=== PATIENT | male | born 1980 | race Caucasian/White ===

== ENCOUNTER 2016-12-23 09:31 | Outpatient (CLI) | payer BC ==
[~2016-12-23] VITALS: Ht 185.4 cm; Wt 117.9 kg
[2016-12-23] MEDS ORDERED: LISI10TA2 PO (16:18)
[2016-12-23] MEDS ORDERED: CYCL10TA9 PO (16:18)
[2016-12-23] MEDS ORDERED: TEMA15CA PO (16:18)
[2017-03-07] MEDS ORDERED: HYDR-3729 PO ×2 (06:54→08:25)
[2017-03-07] MEDS ORDERED: CYCL10TA9 PO (08:25)
== END 2016-12-23 16:22 ==
LOC: PREOP 09:31
PROVIDERS: ATTEND Pain Medicine Pain Medicine
DX: Z01.818 Encounter for other preprocedural examination (principal); M51.86 Other intervertebral disc disorders, lumbar region; G89.4 Chronic pain syndrome

== ENCOUNTER 2016-12-27 07:39 | Day surgery (SDC) | payer BC ==
[~2016-12-27] VITALS: Ht 185.4 cm; Wt 117.9 kg
[~2016-12-27 07:39] MED LIST: CYCL10TA9 PO; LISI10TA2 PO; TEMA15CA PO
[2016-12-27] MEDS ORDERED: ceFAZolin 2 GM/50 ML NS 50 ML IV ONE (08:20)
[2016-12-27] MEDS ORDERED: LACTATED RINGERS 1,000 ML IV PRN ×2 (08:25→08:46)
[2016-12-27] MEDS ORDERED: ceFAZolin 2 GM/NS 50 ML IV ONE (08:45)
[2016-12-27] MEDS ORDERED: proPOfol 200 MG/20 ML (DIPRIVAN) VIAL IV ONE (08:48)
[2016-12-27] MEDS ORDERED: fentaNYL INJECTION 100 MCG/2 ML AMP ONE (08:49)
[2016-12-27] MEDS ORDERED: MIDAZOLAM 2 MG/2 ML (VERSED) VIAL ONE (08:49)
[2016-12-27 08:50] VITALS: BP 147/91
--- NOTE | 2016-12-27 08:50 | Progress Note-Pre Operative ---
Pre-Operative Progress Note H&P Reviewed The H&P was reviewed, patient examined and no changes noted. Date H&P Reviewed: Dec 27, 2016 Time H&P Reviewed: 08:50 Pre-Operative Diagnosis: chronic pain syndrome, lumbago, degenerative disc disease lumbar MARIELENA JERONIMO MD Dec 27, 2016 8:50 am
[2016-12-27] MEDS ORDERED: LIDOCAINE 1% INJ 20 ML (XYLOCAINE) VIAL ONE (08:52)
--- NOTE | 2016-12-27 09:52 | Discharge Inst-Simple/Standard ---
Discharge Inst-Standard Patient Instructions/Follow Up Plan of Care/Instructions/FU: Call clinic for any fevers, chills or bleeding/drainage from surgical site. Do not remove the dressings. No showers or bathing for 7 days. Turn off the spinal cord stimulator when driving. Follow up in clinic on 01/01/17 at 10:30 am Call the spinal cord stimulator promotions representative or pain clinic for any questions or concerns. Activity as Tolerated: Yes Discharge Diet: No Restrictions MARIELENA JERONIMO MD Dec 27, 2016 09:52
--- NOTE | 2016-12-27 09:54 | Operative Report ---
Operative Report Date of Procedure/Surgery Dec 27, 2016 Post-Operative Diagnosis chronic pain syndrome, lumbago, degenerative disc disease lumbar Procedure Performed Name of Procedure: AP Film of Thoracolumbar Spine w/ fluoroscopy guidance and interpretation Placement of specialized epidural needle to the L2-3 inter space bilaterally Placement of linear lead with dual 8 electrodes to the T6-T7 disc interspace area Intra-operative complex programming of lead taking 30 minutes. Anchoring the spinal cord stimulator lead to the skin Complex programming in recovery taking 30 minutes. Description of Procedure Anesthesia Type: MAC Estimated blood loss (mL): <5 ml Specimen(s) collected none Packing: none Indications The patient is an established patient with the above known diagnosis. The patient understands the reason for the procedure along with the risks, benefits and alternatives available. The patient has had the opportunity to ask questions prior to the procedure, and the patient has given written, informed, consent to proceed with the procedure. Medical Necessity: This patient has chronic pain that has failed to respond to conservative measures as outlined in the original history and physical exam. Patient's symptoms include pain in the ow back and legs. The goals of treatment are to 1) achieve optimal pain control, recognizing that a pain-free state may not be achievable; 2) minimize adverse outcomes; 3) enhance functional abilities, and physical and psychological well-being; and 4) enhance the quality of life for patients with chronic pain. Procedure After obtaining written informed consent patient. Patient was taken to the operating room. Pre-procedure blood pressure and pulse were stable and recorded in patients clinic chart. A formal time out was performed. Ancef 2 gm IV was given. The patient was placed in the prone position on operating room table. The patient was attached to a vital sign monitor, continuously monitoring saturation through pulse oximeter, pulse rate, and routine checks on the blood pressure as recorded in the anesthesia record. Moderate level sedation was then achieved by anesthesia as detailed in anesthesia record. A large portion of the dorsal cavity was scrubbed with a micro-antibacterial surgical solution. The patient was draped in typical sterile fashion. After confirmation of vertebral count through thorocolumbar films, the C-arm was used to help define the angle and access point for the epidural needle. Prior to needle placement, and after location of the access point, lidocaine 1% was infiltrated into the skin and deeper tissue area for localization prior to specialized epidural needle placement. After the lidocaine had taken effect, a Touhy needle size 14- guage was introduced and advanced at the level of L2-L3 on the right and left side. Once the loss of resistance was positive using a glass syringe, an 8 electrode linear lead was channeled through the epidural needle and guided carefully to the T6-T7 inter space. The same steps were followed to place an 8 electrode lead midline to the left of the first lead. This placement gave appropriate stimulation. Various program settings were worked through within the operating room, to ensure appropriate coverage with the stimulation. Minor adjustments were made as needed to develop excellent coverage. There was no evidence of paresthesia, heme or CSF. Once the coverage was optimal, the guide needle was removed from the insertion site. The leads then were anchored using the tapered anchor 2-0 silk. Sterile dressing applied using tegaderm, bacitracin ointment and gauze. The patient was then taken from the operating room via stretcher and placed in a recovery room. Once in the recovery room, the fine tune adjustments were made to the stimulation pattern. This additional programming was needed to give the patient optimal coverage during the trial. Post operatively the patient was monitored until stable. Following the procedure the patient's vital signs were stable. fluoro time are recorded in the patient chart. Allergies and Home Medications Allergies Coded Allergies: No Known Drug Allergies (Unverified , 12/23/16) Home Medications Cyclobenzaprine HCl 10 Mg Tablet 10 MG PO HS (Reported) Lisinopril 10 Mg Tablet 10 MG PO DAILY (Reported) Temazepam 15 Mg Capsule 15 MG PO HS (Reported) MARIELENA JERONIMO MD Dec 27, 2016 09:54
[2016-12-27] MEDS ORDERED: ONDANSETRON 4 MG/2 ML (SDV) Z0FRAN IVP PRN (10:00)
[2016-12-27] MEDS ORDERED: morphine INJ 10 MG/ML 1ML (SYR OR VIAL) IVP PRN (10:00)
[2016-12-27 10:15] VITALS: BP 114/70
[2016-12-27 10:45] VITALS: BP 133/87
--- NOTE | 2016-12-27 10:49 | Diagnostic Imaging Report ---
Fluoroscopy guidance provided to the OR. INDICATION: Nerve stimulator placement. FINDINGS: Fluoroscopy time provided for 3 minutes and 47 seconds. IMPRESSION: Imaging over the lower chest demonstrates spine stimulator leads placed projecting over the lower thoracic spine. Dictated by: Dictated on workstation # [id number]
[2016-12-27 11:15] VITALS: BP 126/77
[2016-12-27 11:45] VITALS: BP 126/77
[2017-03-07] MEDS ORDERED: HYDR-3729 PO ×2 (06:54→08:25)
[2017-03-07] MEDS ORDERED: CYCL10TA9 PO (08:25)
== END 2016-12-27 11:45 | disposition home or self-care (01) ==
LOC: SDC 07:39
PROVIDERS: ATTEND Pain Medicine Pain Medicine
DX: G89.4 Chronic pain syndrome (principal); M51.86 Other intervertebral disc disorders, lumbar region
CPT/HCPCS: 87081

== ENCOUNTER 2017-02-10 14:08 | Outpatient (CLI) | payer BC ==
[~2017-02-10] VITALS: Ht 185.4 cm; Wt 117.9 kg
[2017-03-07] MEDS ORDERED: HYDR-3729 PO ×2 (06:54→08:25)
[2017-03-07] MEDS ORDERED: CYCL10TA9 PO (08:25)
== END 2017-02-10 14:34 ==
LOC: PREOP 14:08
PROVIDERS: ATTEND Orthopaedic Surgery Orthopaedic Surgery of the Spine
DX: Z01.818 Encounter for other preprocedural examination (principal); M54.5 Low back pain

== ENCOUNTER 2017-03-07 06:13 | Day surgery (SDC) | payer BC ==
[~2017-03-07] VITALS: Ht 185.4 cm; Wt 117.9 kg
[~2017-03-07 06:13] MED LIST changes: -HYDR-3729 PO; -LACTATED RINGERS 1,000 ML IV ONE
[2017-03-07 06:30] VITALS: BP 131/86
[2017-03-07] MEDS: LACTATED RINGERS 1,000 ML IV PRN ×2 (06:30→08:09)
[2017-03-07] MEDS ORDERED: ceFAZolin 1,000 MG (ANCEF) VIAL ONE (06:36)
[2017-03-07] MEDS ORDERED: NS (IVPB) 50 ML ONE (06:37)
[2017-03-07] MEDS ORDERED: MIDAZOLAM 2 MG/2 ML (VERSED) VIAL ONE (06:43)
[2017-03-07] MEDS ORDERED: ROCURONIUM 50 MG/5 ML (ZEMURON) VIAL IV ONE (06:43)
[2017-03-07] MEDS ORDERED: ONDANSETRON 4 MG/2 ML (SDV) Z0FRAN ONE (06:43)
[2017-03-07] MEDS ORDERED: LIDOCAINE PF 2% 10 ML (XYLOCAINE) AMP ONE (06:43)
[2017-03-07] MEDS ORDERED: proPOfol 200 MG/20 ML (DIPRIVAN) VIAL IV ONE (06:43)
[2017-03-07] MEDS ORDERED: fentaNYL INJECTION 100 MCG/2 ML AMP ONE ×3 (06:43→09:11)
[2017-03-07] MEDS ORDERED: DEXAMETHASONE PF 10 MG/ML (DECADRON) VIAL ONE (06:43)
[2017-03-07] MEDS ORDERED: LACTATED RINGERS 1,000 ML IV ONE ×2 (06:43→08:09)
[2017-03-07] MEDS ORDERED: GENTAMICIN 40 MG/ML 2 ML INJ SDV ONE (06:51)
[2017-03-07] MEDS ORDERED: BUP/EPI 0.25% 1:200,000 (MARCAINE) 30 ML VIAL ONE (06:51)
[2017-03-07] MEDS ORDERED: VANCOMYCIN 1000 MG/VIAL ONE (06:51)
[2017-03-07] MEDS ORDERED: HYDR-3729 PO ×3 (06:54→08:25)
[2017-03-07] MEDS ORDERED: ceFAZolin 1 GM/NS 50 ML IVPB IV ONE ×2 (07:00)
[2017-03-07] MEDS ORDERED: SEVOFLURANE (ULTANE) 15 ML INHAL SOLN ONE (08:09)
--- NOTE | 2017-03-07 08:23 | Progress Note-Post Operative ---
Post-Operative Progess Note Surgeon (s)/Senior Hr Manager (s) Surgeon AYLA RICO MD Senior Hr Manager: Shayne Chapman, SHANNAN Pre-Operative Diagnosis LUMBARGO, lumbar radiculopathy Post-Operative Diagnosis Same Procedure & Operative Findings Date of Procedure 03/07/17 Procedure Preformed/Findings T9-10 laminotomy and paddle electrode placement and Battery for SCS and complex programming. Anesthesia Type GETA Estimated Blood Loss Estimated blood loss (mL): min Specimens/Packing Specimens Removed none Packing: none AYLA RICO MD March 07, 2017 8:23 am
[2017-03-07] MEDS ORDERED: CYCL10TA9 PO ×2 (08:25)
[2017-03-07] MEDS ORDERED: morphine INJ 10 MG/ML 1ML (SYR OR VIAL) ONE (08:35)
[2017-03-07] MEDS ORDERED: MEPERIDINE (DEMEROL) INJ 50 MG/ML ONE (08:41)
[2017-03-07] MEDS ORDERED: fentaNYL INJECTION 100 MCG/2 ML AMP IVP PRN (08:45)
[2017-03-07] MEDS: MEPERIDINE (DEMEROL) INJ 50 MG/ML IVP PRN ×2 (08:45→08:50)
[2017-03-07] MEDS ORDERED: ONDANSETRON 4 MG/2 ML (SDV) Z0FRAN IVP PRN (08:45)
--- NOTE | 2017-03-07 08:48 | Diagnostic Imaging Report ---
Intraoperative views of the lower thoracic spine. INDICATION: Spinal cord stimulator placed by Dr. Ann Fluoroscopy time utilized 7 seconds IMPRESSION: Provided images demonstrate spinal cord stimulator projecting over the lower thoracic spine. Dictated by: Dictated on workstation # [id number]
[2017-03-07] MEDS: morphine INJ 10 MG/ML 1ML (SYR OR VIAL) IVP PRN ×2 (08:56→09:08)
--- NOTE | 2017-03-07 09:08 | OPERATIVE REPORT ---
DATE OF SERVICE: 03/07/2017 PREOPERATIVE DIAGNOSIS: Chronic lumbago and lumbar radiculopathy. POSTOPERATIVE DIAGNOSIS: Chromic lumbago and lumbar radiculopathy. PROCEDURES PERFORMED: 1. T9 and T10 laminectomy for placement of paddle electrode for spinal cord stimulation. 2. Placement of IPG battery for spinal cord stimulation. 3. Complex programming of spinal cord stimulator. DATE AND TIME OF SURGERY: Please see anesthesia record. SURGEON: Ayla Ann MD INJECTION WAX MOLDER: AUTUMN Calderon ROLE OF VEHICLE SALES PROFESSIONAL: Aid in retraction in the procedure, suction of neural elements, and wound closure. IMPLANTS USED: [employer] Penta leads, [employer] Proclaim 7 battery. ANESTHESIA: General endotracheal. ESTIMATED BLOOD LOSS: Minimal. INTRAVENOUS FLUID: Please see anesthesia record. ANTIBIOTICS: Ancef. COMPLICATIONS: None. INDICATIONS OF PROCEDURE: The patient is a 36-year-old male with severe back and leg pain. No clearly identifiable surgically correctable lesion but persistent EMG proven radicular pain. He had a positive spinal cord stim trial and desires permanent placement. Risks, benefits, alternatives discussed and he would like to proceed with the operation mentioned. Neural monitoring was performed throughout the procedure and stable. DESCRIPTION OF THE PROCEDURE: The patient was taken to the preoperative holding area and brought back to operative suite after adequate induction of general anesthetic. Preoperative antibiotics were given, turned prone on the Tom table, care with padding, sterilely prepped and draped posterior thoracic and lumbar spine. The midline where the 9-10 level was localized. A small incision was made. Laminotomy was created. Dural separator was utilized and a paddle electrode was placed over the 7-8 interspace where he had his best pain relief. He was anchored into position at the lamina level and then fascia was closed and anchor again at the fascial level. Strain loops were created and was tunneled into his left lower back where a battery pocket site was created and it was connected to a Proclaim 7 battery. System was functioning well. Wounds were irrigated, closed in layers and the patient transferred to recovery room in stable condition and tolerated the procedure well. With utilization of the programming and neural monitoring, multiple steps were obtained to make sure there was bilateral coverage and complex programing was performed. Job ID: [id number] DocumentID: [id number] Dictated Date: 03/07/2017 08:19:13 Tariff Compiling Clerk Date: 03/07/2017 09:07:11 Dictated By: ALYA ANN MD MTDD
[2017-03-07 09:40] VITALS: BP 125/72
[2017-03-07] MEDS ORDERED: HYDROcodone/APAP 10 MG/325 MG (LORTAB) TAB PO ONE (09:47)
[2017-03-07 10:10] VITALS: BP 116/66
[2017-03-07 10:40] VITALS: BP 117/66
[2017-03-07 12:25] VITALS: BP 117/66
== END 2017-03-07 12:25 | disposition home or self-care (01) ==
LOC: SDC 06:13
PROVIDERS: ATTEND Orthopaedic Surgery Orthopaedic Surgery of the Spine
DX: M54.16 Radiculopathy, lumbar region (principal); I10 Essential (primary) hypertension; Z79.899 Other long term (current) drug therapy
CPT/HCPCS: 87081

== ENCOUNTER → 2017-03-07 | Outpatient (CLI) | payer BC ==
[~2017-03-07] VITALS: Ht 185.4 cm; Wt 117.9 kg
[~2017-03-07] MED LIST changes: +HYDR-3729 PO; +LACTATED RINGERS 1,000 ML IV ONE
[2017-03-07 06:30] VITALS: BP 131/86
== END ==
LOC: PREOP 03-03 05:39
PROVIDERS: ATTEND Orthopaedic Surgery Orthopaedic Surgery of the Spine
DX: Z01.818 Encounter for other preprocedural examination (principal); M54.5 Low back pain